=== PATIENT | female | born 1965 | race American Indian/Alaskan Native ===

== ENCOUNTER 2016-11-30 11:25 | Emergency (ER) | payer OTHER ==
[2016-11-30 11:56] VITALS: BP 191/120
[2016-11-30 13:05] LABS: Basophils % (Auto) 0.5 % (0.0-1.8); Eosinophils % (Auto) 1.6 % (0.0-4.3); Hematocrit 41.4 % (30.3-42.9); Mean Corpuscular HGB Conc 31 % (30-34); Mean Corpuscular Hemoglobin 26 pg (28-32); Mean Corpuscular Volume 84 fl (79-97); Platelet Count 249 K/mm3 (140-440); Red Blood Count 4.95 M/mm3 (3.65-5.03); White Blood Count 5.9 K/mm3 (4.5-11.0)
[2016-11-30 13:22] LABS: Anion Gap 18 mmol/L; BUN/Creatinine Ratio 17.14; Blood Urea Nitrogen 12 mg/dL (7-17); Calcium 9.5 mg/dL (8.4-10.2); Carbon Dioxide 28 mmol/L (22-30); Chloride 102.3 mmol/L (98-107); Glucose 85 mg/dL (65-100); Potassium 4.3 mmol/L (3.6-5.0); Sodium 144 mmol/L (137-145)
--- NOTE | 2016-12-05 19:40 | ED Elopement Review ---
ED Pt Elopement review - Results review Lab results: Laboratory Tests 11/30/16 11/30/16 11/30/16 11:58 11:58 14:24 WBC 5.9 RBC 4.95 Hgb 13.0 Hct 41.4 MCV 84 MCH 26 L MCHC 31 RDW 13.0 L Plt Count 249 Lymph % (Auto) 35.2 H [place] % (Auto) 8.0 H Eos % (Auto) 1.6 Baso % (Auto) 0.5 Lymph # 2.1 Summit # 0.5 Eos # 0.1 Baso # 0.0 Seg Neutrophils % 54.7 Seg Neutrophils # 3.2 Sodium 144 Potassium 4.3 Chloride 102.3 Carbon Dioxide 28 Anion Gap 18 BUN 12 Creatinine 0.7 Estimated GFR > 60 BUN/Creatinine Ratio 17.14 Glucose 85 Calcium 9.5 Troponin T < 0.010 < 0.010 11/30/16 17:54 WBC RBC Hgb Hct MCV MCH MCHC RDW Plt Count Lymph % (Auto) [place] % (Auto) Eos % (Auto) Baso % (Auto) Lymph # [place] # Eos # Baso # Seg Neutrophils % Seg Neutrophils # Sodium Potassium Chloride Carbon Dioxide Anion Gap BUN Creatinine Estimated GFR BUN/Creatinine Ratio Glucose Calcium Troponin T < 0.010 - Call Back decision Pt Call Back Decision: No action required
== END 2016-11-30 19:45 | disposition left against medical advice (07) ==
LOC: ED 11:25
DX: R07.9 Chest pain, unspecified (principal); M54.9 Dorsalgia, unspecified; M25.511 Pain in right shoulder; M25.512 Pain in left shoulder; I10 Essential (primary) hypertension; Z88.6 Allergy status to analgesic agent; Z53.21 Procedure and treatment not carried out due to patient leaving prior to being seen by health care provider
CPT/HCPCS: 36415; 80048; 84484; 85025; 93005; 93010

== ENCOUNTER 2016-12-01 13:02 | Emergency (ER) | payer OTHER ==
[2016-12-01 13:53] LABS: Basophils % (Auto) 0.6 % (0.0-1.8); Eosinophils % (Auto) 1.4 % (0.0-4.3); Mean Corpuscular HGB Conc 32 % (30-34); Mean Corpuscular Hemoglobin 27 pg (28-32); Mean Corpuscular Volume 85 fl (79-97); Platelet Count 239 K/mm3 (140-440); Red Blood Count 4.85 M/mm3 (3.65-5.03); White Blood Count 6.7 K/mm3 (4.5-11.0)
[2016-12-01 14:02] LABS: Anion Gap 15 mmol/L; Blood Urea Nitrogen 14 mg/dL (7-17); Calcium 9.2 mg/dL (8.4-10.2); Carbon Dioxide 27 mmol/L (22-30); Chloride 103.3 mmol/L (98-107); Glucose 85 mg/dL (65-100); Potassium 4.1 mmol/L (3.6-5.0); Sodium 141 mmol/L (137-145)
[2016-12-01 18:15] VITALS: BP 181/101
[2016-12-01] MEDS ORDERED: TORADOL IM ONE (18:34)
--- NOTE | 2016-12-01 19:54 | Emergency Department Report ---
ED General Adult HPI - General Chief complaint: Chest Pain Stated complaint: CHEST/SHOULDERS/BACK PACK Time Seen by Provider: 12/01/16 17:56 Source: patient Mode of arrival: Ambulatory Limitations: No Limitations - History of Present Illness Onset/Timin -: Gradual, year(s) Location: left, upper extremity Radiation: back Severity scale (0 -10): 8 Quality: sharp Consistency: constant Improves with: none Worsens with: movement Associated Symptoms: denies: confusion, cough, diaphoresis, fever/chills, loss of appetite, malaise, nausea/vomiting, rash, shortness of breath, syncope, weakness Treatments Prior to Arrival: none - Related Data Home Medications Medication Instructions Recorded Confirmed Last Taken Losartan/Hydrochlorothiazide 15 mg PO QDAY 02/14/16 02/14/16 Unknown [Hyzaar 100-25 TAB] Previous Rx's Medication Instructions Recorded Last Taken Type Diclofenac Sodium 75 mg PO BID #20 tablet. 12/01/16 Unknown Rx Allergies Allergy/AdvReac Type Severity Reaction Status Date / Time aspirin AdvReac Vomiting Verified 11/30/16 11:51 ED Review of Systems ROS: Stated complaint: CHEST/SHOULDERS/BACK PACK Other details as noted in HPI Comment: All other systems reviewed and negative ED Past Medical Hx - Past Medical History Hx Hypertension: Yes - Surgical History Additional Surgical History: tubal ligation, hernia repair - Social History Smoking Status: Never Smoker Substance Use Type: None - Medications Home Medications: Home Medications Medication Instructions Recorded Confirmed Last Taken Type Losartan/Hydrochlorothiazide 15 mg PO QDAY 02/13/02/14/16 Unknown History [Hyzaar 100-25 TAB] Diclofenac Sodium 75 mg PO BID #20 tablet. 12/01/16 Unknown Rx ED Physical Exam - General Limitations: No Limitations General appearance: alert, in no apparent distress - Head Head exam: Present: atraumatic, normocephalic - Eye Eye exam: Present: normal appearance - ENT ENT exam: Present: mucous membranes moist - Neck Neck exam: Present: normal inspection - Respiratory Respiratory exam: Present: normal lung sounds bilaterally. Absent: respiratory distress - Cardiovascular Cardiovascular Exam: Present: regular rate, normal rhythm. Absent: systolic murmur, diastolic murmur, rubs, gallop - GI/Abdominal GI/Abdominal exam: Present: soft, normal bowel sounds - Extremities Exam Extremities exam: Present: normal inspection - Back Exam Back exam: Present: normal inspection - Neurological Exam Neurological exam: Present: alert, oriented X3 - Psychiatric Psychiatric exam: Present: normal affect, normal mood - Skin Skin exam: Present: warm, dry, intact, normal color. Absent: rash ED Course Vital Signs 12/01/16 12/01/16 12/01/16 13:09 18:06 18:14 Temperature 98.4 F 98.1 F Pulse Rate 66 81 79 Respiratory 18 23 16 Rate Blood Pressure 191/116 Blood Pressure 181/101 [Left] O2 Sat by Pulse 100 99 Oximetry 12/01/16 18:31 Temperature Pulse Rate 71 Respiratory 23 Rate Blood Pressure 181/101 Blood Pressure [Left] O2 Sat by Pulse Oximetry ED Medical Decision Making - Lab Data Result diagrams: 12/01/16 13:28 12/01/16 13:28 Critical care attestation.: If time is entered above; I have spent that time in minutes in the direct care of this critically ill patient, excluding procedure time. ED Disposition Clinical Impression: Shoulder pain, bilateral Disposition: DISCHARGED TO HOME OR SELFCARE Is pt being admited?: No Does the pt Need Aspirin: No Condition: Good Instructions: Rotator Cuff Injury (ED), Rotator Cuff Tendinitis (ED) Prescriptions: Diclofenac Sodium 75 mg PO BID #20 tablet.dr Referrals: MINAL BONDS MD [Staff Physician] - 3-5 Days Time of Disposition: 19:52
--- NOTE | 2016-12-01 20:01 | XRay Report ---
FINAL REPORT PROCEDURE: XR SHOULDER BILAT 2 TECHNIQUE: Bilateral shoulders, three views HISTORY: bilateral shoulder pain COMPARISON: No prior studies are available for comparison. FINDINGS: No acute fracture or dislocation is seen. Bilateral acromioclavicular joint mild arthritic changes. No focal osseous lesions are seen. IMPRESSION: No acute abnormality is identified. Mild bilateral acromioclavicular joint osteoarthritic changes
== END 2016-12-01 20:56 | disposition home or self-care (01) ==
LOC: ED 13:02
DX: M25.511 Pain in right shoulder (principal); M25.512 Pain in left shoulder; I10 Essential (primary) hypertension; Z98.51 Tubal ligation status; Z88.6 Allergy status to analgesic agent
CPT/HCPCS: 36415; 73030; 80048; 84484; 85025; 93005; 93010; 96372; 99285; J1885

== ENCOUNTER 2017-12-15 07:26 | Emergency (ER) | payer OTHER ==
[2017-12-15 07:41] VITALS: BP 156/97
[2017-12-15 08:11] LABS: Basophils % (Auto) 0.7 % (0.0-1.8); Eosinophils # (Auto) 0.1 K/mm3 (0.0-0.4); Eosinophils % (Auto) 1.7 % (0.0-4.3); Hematocrit 38.2 % (30.3-42.9); Hemoglobin 12.9 gm/dl (10.1-14.3); Lymphocytes # (Auto) 1.7 K/mm3 (1.2-5.4); Lymphocytes % (Auto) 34.3 % (13.4-35.0); Mean Corpuscular HGB Conc 34 % (30-34); Mean Corpuscular Hemoglobin 28 pg (28-32); Mean Corpuscular Volume 82 fl (79-97); Monocytes # (Auto) 0.4 K/mm3 (0.0-0.8); Platelet Count 217 K/mm3 (140-440); Red Blood Count 4.69 M/mm3 (3.65-5.03); Red Cell Distribution Width 12.9 % (13.2-15.2)
[2017-12-15 08:29] LABS: Alanine Aminotransferase 11 units/L (7-56); Albumin 4.1 g/dL (3.9-5); BUN/Creatinine Ratio 15; Blood Urea Nitrogen 12 mg/dL (7-17); Calcium 9.2 mg/dL (8.4-10.2); Hemolysis Index 8; Lipase 57 units/L (13-60)
--- NOTE | 2017-12-15 09:01 | XRay Report ---
CHEST TWO VIEWS: 12/15/17 07:26:00 CLINICAL: Left rib and chest pain. COMPARISON: 10/10/17 FINDINGS: Normal heart and pulmonary vasculature. The lungs are normally expanded and clear.Degenerative change in the spine. No rib fracture or rib lesion identified. IMPRESSION: Normal chest.Consider chest images with rib detail.
[2017-12-15] MEDS ORDERED: NORCO 5/325 PO ONE (11:34)
[2017-12-15] MEDS ORDERED: K-DUR PO ONE (11:36)
--- NOTE | 2017-12-15 11:45 | Emergency Department Report ---
ED Back Pain/Injury HPI - General Chief Complaint: Abdominal Pain Stated Complaint: LEFT FLANK PAIN Time Seen by Provider: 12/15/17 11:23 Source: patient Limitations: No Limitations - History of Present Illness Initial Comments: 52-year-old female with a past medical history of hypertension presents to the hospital complaining of left upper flank pain 4 days. Pain is on the upper left thigh radiating anteriorly at the thoracic or abdominal border. Pain is sharp, constant, worse with twisting her torso to the opposite direction and deep inspiration. She denies shortness of breath, recent travel, calf tenderness or edema, fever, cough, or known muscle strain. Patient presents with a splint on her left hand and states she thinks she was diagnosed with tendinitis. Patient taken Percocet at home for this injury but does not take the medication often because it makes her sleep. She also states she cannot take Motrin without eating a lot of food because it induces vomiting. Therefore , patient has not taken any pain medication prior to arrival and presents with 10/10 pain. Patient appears uncomfortable with movement but no acute distress noted. - Related Data Home Medications Medication Instructions Recorded Confirmed Last Taken Losartan/Hydrochlorothiazide 15 mg PO QDAY 02/14/16 02/14/16 Unknown [Hyzaar 100-25 TAB] Previous Rx's Medication Instructions Recorded Last Taken Type Diclofenac Sodium 75 mg PO BID #20 tablet. 12/01/16 Unknown Rx Allergies Allergy/AdvReac Type Severity Reaction Status Date / Time aspirin AdvReac Vomiting Verified 11/30/16 11:51 ED Review of Systems ROS: Stated complaint: LEFT FLANK PAIN Other details as noted in HPI Comment: All other systems reviewed and negative ED Past Medical Hx - Past Medical History Previous Medical History?: Yes Hx Hypertension: Yes - Surgical History Past Surgical History?: Yes Additional Surgical History: tubal ligation, hernia repair, Left hand surgery - Social History Smoking Status: Never Smoker Substance Use Type: Prescribed - Medications Home Medications: Home Medications Medication Instructions Recorded Confirmed Last Taken Type Losartan/Hydrochlorothiazide 15 mg PO QDAY 02/14/16 02/14/16 Unknown History [Hyzaar 100-25 TAB] Diclofenac Sodium 75 mg PO BID #20 tablet. 12/01/16 Unknown Rx ED Physical Exam - General Limitations: No Limitations - Other Other exam information: General: No limitations, patient is alert in no acute distress Head exam: Atraumatic, normocephalic Eyes exam: Normal appearance, pupils equal reactive to light, extraocular movements intact ENT: Moist mucous membrane, normal oropharynx Neck exam: Normal inspection, full range of motion, no meningismus nontender Respiratory exam: Clear to auscultation bilateral, no wheezes, rales, crackles Cardiovascular: Normal rate and rhythm, normal heart sounds, no chest wall tenderness Abdomen: Soft, nondistended, and nontender, with normal bowel sounds, no rebound, or guarding Extremity: Full range of motion normal inspection no deformity, no calf tenderness or edema Back: Normal Inspection, full range of motion, no tenderness, no flank tenderness Neurologic: Alert, oriented x3, cranial nerves intact, no motor or sensory deficit Psychiatric: normal affect, normal mood Skin: Warm, dry, intact ED Course Vital Signs 12/15/17 12/15/17 07:37 11:45 Temperature 98.7 F Pulse Rate 77 Respiratory 20 20 Rate Blood Pressure 156/97 O2 Sat by Pulse 98 Oximetry - Reevaluation(s) Reevaluation #1: 12/15/17 11:46 norco, potassium ordered Reevaluation #2: 12/15/17 13:55 was prepared to d/c pt over an hour ago but no longer in fast track waiting room. Pt will be d/laura from the system at this time as an elopement. ED Medical Decision Making - Lab Data Result diagrams: 12/15/17 07:47 12/15/17 07:47 Lab Results 12/15/17 12/15/17 12/15/17 Range/Units 07:47 07:47 07:51 WBC 5.1 (4.5-11.0) K/mm3 RBC 4.69 (3.65-5.03) M/mm3 Hgb 12.9 (10.1-14.3) gm/dl Hct 38.2 (30.3-42.9) % MCV 82 (79-97) fl MCH 28 (28-32) pg MCHC 34 (30-34) % RDW 12.9 L (13.2-15.2) % Plt Count 217 (140-440) K/mm3 Lymph % (Auto) 34.3 (13.4-35.0) % Cook % (Auto) 8.0 H (0.0-7.3) % Eos % (Auto) 1.7 (0.0-4.3) % Baso % (Auto) 0.7 (0.0-1.8) % Lymph # 1.7 (1.2-5.4) K/mm3 Cook # 0.4 (0.0-0.8) K/mm3 Eos # 0.1 (0.0-0.4) K/mm3 Baso # 0.0 (0.0-0.1) K/mm3 Seg Neutrophils % 55.3 (40.0-70.0) % Seg Neutrophils # 2.8 (1.8-7.7) K/mm3 D-Dimer (0-234) ng/mlDDU Sodium 132 L (137-145) mmol/L Potassium 3.2 L (3.6-5.0) mmol/L Chloride 89.5 L (98-107) mmol/L Carbon Dioxide 31 H (22-30) mmol/L Anion Gap 15 mmol/L BUN 12 (7-17) mg/dL Creatinine 0.8 (0.7-1.2) mg/dL Estimated GFR > 60 ml/min BUN/Creatinine Ratio 15 % Glucose 99 (65-100) mg/dL Calcium 9.2 (8.4-10.2) mg/dL Total Bilirubin 0.40 (0.1-1.2) mg/dL AST 18 (5-40) units/L ALT 11 (7-56) units/L Alkaline Phosphatase 75 (35-129) units/L Total Protein 7.2 (6.3-8.2) g/dL Albumin 4.1 (3.9-5) g/dL Albumin/Globulin Ratio 1.3 % Lipase 57 (13-60) units/L Urine Color Yellow (Yellow) Urine Turbidity Clear (Clear) Urine pH 6.0 (5.0-7.0) Ur Specific Brandon 1.014 (1.003-1.030) Urine Protein <15 mg/dl (Negative) mg/dL Urine Glucose (UA) Neg (Negative) mg/dL Urine Ketones Neg (Negative) mg/dL Urine Blood Neg (Negative) Urine Nitrite Neg (Negative) Urine Bilirubin Neg (Negative) Urine Urobilinogen < 2.0 (<2.0) mg/dL Ur Leukocyte Esterase Mod (Negative) Urine WBC (Auto) 2.0 (0.0-6.0) /HPF Urine RBC (Auto) 1.0 (0.0-6.0) /HPF U Epithel Cells (Auto) 3.0 (0-13.0) /HPF Urine Mucus Few /HPF / Range/Units 11:59 WBC (4.5-11.0) K/mm3 RBC (3.65-5.03) M/mm3 Hgb (10.1-14.3) gm/dl Hct (30.3-42.9) % MCV (79-97) fl MCH (28-32) pg MCHC (30-34) % RDW (13.2-15.2) % Plt Count (140-440) K/mm3 Lymph % (Auto) (13.4-35.0) % Cook % (Auto) (0.0-7.3) % Eos % (Auto) (0.0-4.3) % Baso % (Auto) (0.0-1.8) % Lymph # (1.2-5.4) K/mm3 [place] # (0.0-0.8) K/mm3 Eos # (0.0-0.4) K/mm3 Baso # (0.0-0.1) K/mm3 Seg Neutrophils % (40.0-70.0) % Seg Neutrophils # (1.8-7.7) K/mm3 D-Dimer 157.33 (0-234) ng/mlDDU Sodium (137-145) mmol/L Potassium (3.6-5.0) mmol/L Chloride (98-107) mmol/L Carbon Dioxide (22-30) mmol/L Anion Gap mmol/L BUN (7-17) mg/dL Creatinine (0.7-1.2) mg/dL Estimated GFR ml/min BUN/Creatinine Ratio % Glucose (65-100) mg/dL Calcium (8.4-10.2) mg/dL Total Bilirubin (0.1-1.2) mg/dL AST (5-40) units/L ALT (7-56) units/L Alkaline Phosphatase (35-129) units/L Total Protein (6.3-8.2) g/dL Albumin (3.9-5) g/dL Albumin/Globulin Ratio % Lipase (13-60) units/L Urine Color (Yellow) Urine Turbidity (Clear) Urine pH (5.0-7.0) Ur Specific Brandon (1.003-1.030) Urine Protein (Negative) mg/dL Urine Glucose (UA) (Negative) mg/dL Urine Ketones (Negative) mg/dL Urine Blood (Negative) Urine Nitrite (Negative) Urine Bilirubin (Negative) Urine Urobilinogen (<2.0) mg/dL Ur Leukocyte Esterase (Negative) Urine WBC (Auto) (0.0-6.0) /HPF Urine RBC (Auto) (0.0-6.0) /HPF U Epithel Cells (Auto) (0-13.0) /HPF Urine Mucus /HPF - Radiology Data Radiology results: report reviewed cxr IMPRESSION: Normal chest.Consider chest images with rib detail. - Medical Decision Making left flank/chest pain, likely msk pain worse with movement and inspiration xray neg ddimer neg received norco for pain with improvement Hypokalemia Pt takes losartan HCTZ and she is not compliant with her potassium pill She states she takes potassium when she feels dizzy and thinks her potassium is low She was provided potassium 40 mEq in either counseled regarding compliance with her potassium pills or daily banana ingestion while taking Posicor. will be encouraged to f/u unable to discuss results and dispo with pt since she eloped. no call back needed since d/c intended and pt has pain meds at home. - Differential Diagnosis pe, msk pain, uti, renal colic, muscle strain, pn Critical Care Time: No Critical care attestation.: If time is entered above; I have spent that time in minutes in the direct care of this critically ill patient, excluding procedure time. ED Disposition Clinical Impression: Strain of thoracic region Disposition: Z-07 ELOPED Is pt being admited?: No Does the pt Need Aspirin: No Condition: Stable Instructions: Muscle Strain (ED), Thoracic Pain (ED) Additional Instructions: Continue your current percocet and you may also take ibuprofen as indicated. Return if worsening as indicated by your discharge instructions Referrals: JEFFERY SMALLS, [facility] [employer] [Primary Care Provider] - 3-5 Days Time of Disposition: 13:58 (eloped without d/c instructions)
[2017-12-15 12:47] LABS: Bilirubin,Urine NEG (Negative); Blood,Urine NEG (Negative); Color,Urine Yellow (Yellow); Mucus,Urine FEW /HPF; Protein,Urine <15 mg/dL mg/dL (Negative); Urobilinogen,Urine < 2.0 mg/dL (<2.0)
== END 2017-12-15 14:37 | disposition left against medical advice (07) ==
LOC: ED 07:26
DX: S29.012A Strain of muscle and tendon of back wall of thorax, initial encounter (principal); I10 Essential (primary) hypertension; X58.XXXA Exposure to other specified factors, initial encounter; Y93.89 Activity, other specified; Y92.89 Other specified places as the place of occurrence of the external cause; Y99.8 Other external cause status
CPT/HCPCS: 36415; 71046; 80053; 81001; 83690; 85025; 85379